=== PATIENT | female | born 1985 | race Two or more races ===

== ENCOUNTER 2019-09-21 10:13 | Emergency (ER) | payer OTHER ==
[~2019-09-21] VITALS: Ht 165.1 cm; Wt 61.7 kg
[2019-09-21] MEDS ORDERED: PRENA1 TRUE CO1 EACH PO (10:38)
== END 2019-09-21 17:27 | disposition home or self-care (01) ==
LOC: ER 10:13
DX: O20.8 Other hemorrhage in early pregnancy (principal); O26.851 Spotting complicating pregnancy, first trimester; O36.80X1 Pregnancy with inconclusive fetal viability, fetus 1; Z34.01 Encounter for supervision of normal first pregnancy, first trimester

== ENCOUNTER 2019-09-28 18:36 | Inpatient (IN) | payer OTHER ==
[~2019-09-28] VITALS: Ht 165.1 cm; Wt 61.7 kg
[~2019-09-28 18:36] MED LIST: PRENA1 TRUE CO1 EACH PO
== END 2019-10-01 12:20 | disposition home or self-care (01) | DRG 818 ==
LOC: OB/GYN 18:36
PROVIDERS: ADMIT Obstetrics & Gynecology Obstetrics
PROC: 10D27ZZ Extraction of Products of Conception, Ectopic, Via Natural or Artificial Opening (ICD-10-PCS; principal; 2019-09-28)
DX: O00.101 Right tubal pregnancy without intrauterine pregnancy (principal); O08.89 Other complications following an ectopic and molar pregnancy

== ENCOUNTER → 2020-03-07 09:02 | Outpatient (CLI) | payer OTHER | END | disposition home or self-care (01) | LOC: RX STUDY 09:02 | PROVIDERS: ATTEND Obstetrics & Gynecology Obstetrics | DX: Z00.00 Encounter for general adult medical examination without abnormal findings (principal) ==

== ENCOUNTER 2023-06-28 13:33 | Outpatient (CLI) | payer OTHER | END 2023-06-28 16:31 | disposition home or self-care (01) | LOC: PRENATAL 13:33 | PROVIDERS: ATTEND Obstetrics & Gynecology Maternal & Fetal Medicine | DX: O36.80X0 Pregnancy with inconclusive fetal viability, not applicable or unspecified (principal); O26.859 Spotting complicating pregnancy, unspecified trimester; O99.341 Other mental disorders complicating pregnancy, first trimester; O09.529 Supervision of elderly multigravida, unspecified trimester; O34.40 Maternal care for other abnormalities of cervix, unspecified trimester; O34.10 Maternal care for benign tumor of corpus uteri, unspecified trimester; Z3A.01 Less than 8 weeks gestation of pregnancy ==

== ENCOUNTER 2023-07-29 09:26 | Outpatient (CLI) | payer OTHER | END 2023-07-29 10:48 | disposition home or self-care (01) | LOC: PRENATAL 09:26 | PROVIDERS: ATTEND Obstetrics & Gynecology Maternal & Fetal Medicine | DX: O36.80X0 Pregnancy with inconclusive fetal viability, not applicable or unspecified (principal); O99.341 Other mental disorders complicating pregnancy, first trimester; O09.529 Supervision of elderly multigravida, unspecified trimester; O34.40 Maternal care for other abnormalities of cervix, unspecified trimester; O34.10 Maternal care for benign tumor of corpus uteri, unspecified trimester; Z36.9 Encounter for antenatal screening, unspecified; Z3A.12 12 weeks gestation of pregnancy ==

== ENCOUNTER → 2023-07-30 14:18 | Outpatient (CLI) | payer OTHER | END | disposition home or self-care (01) | LOC: PRENATAL 14:18 | PROVIDERS: ATTEND Obstetrics & Gynecology Maternal & Fetal Medicine | DX: O36.80X0 Pregnancy with inconclusive fetal viability, not applicable or unspecified (principal); O99.341 Other mental disorders complicating pregnancy, first trimester; O09.529 Supervision of elderly multigravida, unspecified trimester; O34.40 Maternal care for other abnormalities of cervix, unspecified trimester; O34.10 Maternal care for benign tumor of corpus uteri, unspecified trimester; O26.859 Spotting complicating pregnancy, unspecified trimester; Z3A.12 12 weeks gestation of pregnancy ==

== ENCOUNTER 2023-09-15 09:35 | Emergency (ER) | payer OTHER ==
[~2023-09-15] VITALS: Ht 167.6 cm; Wt 68.0 kg
== END 2023-09-15 10:25 | disposition home or self-care (01) ==
LOC: ER 09:36
DX: H60.90 Unspecified otitis externa, unspecified ear (principal); Z3A.19 19 weeks gestation of pregnancy; Z88.6 Allergy status to analgesic agent; Z88.9 Allergy status to unspecified drugs, medicaments and biological substances

== ENCOUNTER 2023-09-24 08:03 | Outpatient (CLI) | payer OTHER | END 2023-09-24 08:05 | disposition home or self-care (01) | LOC: PRENATAL 08:03 | PROVIDERS: ATTEND Obstetrics & Gynecology Maternal & Fetal Medicine | DX: O35.3XX0 Maternal care for (suspected) damage to fetus from viral disease in mother, not applicable or unspecified (principal); O44.00 Complete placenta previa NOS or without hemorrhage, unspecified trimester; O99.342 Other mental disorders complicating pregnancy, second trimester; O09.529 Supervision of elderly multigravida, unspecified trimester; O34.40 Maternal care for other abnormalities of cervix, unspecified trimester; O34.10 Maternal care for benign tumor of corpus uteri, unspecified trimester; Z3A.20 20 weeks gestation of pregnancy ==

== ENCOUNTER → 2023-10-17 14:34 | Outpatient (CLI) | payer OTHER | END | disposition home or self-care (01) | LOC: PRENATAL 14:34 | PROVIDERS: ATTEND Obstetrics & Gynecology Maternal & Fetal Medicine | DX: O26.849 Uterine size-date discrepancy, unspecified trimester (principal); O09.529 Supervision of elderly multigravida, unspecified trimester; O34.10 Maternal care for benign tumor of corpus uteri, unspecified trimester; Z3A.23 23 weeks gestation of pregnancy ==

== ENCOUNTER 2023-11-25 00:58 | Inpatient (IN) | payer OTHER ==
[~2023-11-25] VITALS: Ht 165.1 cm; Wt 72.6 kg
[2023-11-25] MEDS ORDERED: MAGNESIUM SULFATE IN WATER 4 GM/100 ML PIGGYBACK IV ONE (01:07)
[2023-11-25] MEDS ORDERED: BETAMETHASONE ACETATE,SOD PHOS 30 MG/5 ML ML ONE (01:11)
[2023-11-25] MEDS ORDERED: OMEGA-31000 MG PO (01:15)
[2023-11-25] MEDS ORDERED: ALPRAZOLAM OD0.25 MG PO (01:15)
[2023-11-25] MEDS ORDERED: BETAMETHASONE ACETATE,SOD PHOS 30 MG/5 ML ML IM ONE (01:30)
[2023-11-25] MEDS ORDERED: MAGNESIUM SULFATE IN WATER 500 ML IV SCH (01:30)
[2023-11-25] MEDS ORDERED: RINGERS SOLUTION,LACTATED 1,000 ML IV SCH (01:30)
[2023-11-25 02:48] LABS: URINE APPEARANCE Cloudy; URINE BILIRRUBIN Negative (NEGATIVE); URINE BLOOD Negative; URINE COLOR Yellow; URINE GLUCOSE Negative (NEGATIVE); URINE LEUKOCYTE Negative; URINE NITRATE Negative; URINE PROTEIN Negative (NEGATIVE); URINE UROBILINOGEN 0.2 E.U./dl
[2023-11-25 02:49] LABS: HEMATOCRIT 36.2 % (36.0-45.00); HEMOGLOBIN 12.6 g/dL (12.0-15.00); MEAN CELL VOLUME 96.8 fL (80.00-100.00); MEAN CORPUSCULAR HEMOGLOBIN 33.7 pg (27.00-32.0); MEAN CORPUSCULAR HGB CONC 34.8 g/dl (32.0-36.0); PLATELET COUNT 242 K/uL (150-450); RED BLOOD COUNT 3.74 M/uL (4.00-6.00); RED CELL DISTRIBUTION WIDTH 12.9 % (11.5-14.5)
[2023-11-25 02:52] LABS: URINE BACTERIA 977.5 uL (0.0-1933); URINE RBC 2.5 uL (0.0-20.8); URINE WBC 20.4 uL (0.0-23.2)
[2023-11-25] MEDS ORDERED: MAGNESIUM SULFATE IN WATER 100 ML IV ONE (03:15)
[2023-11-25 04:26] LABS: INR < 0.93; PARTIAL THROMBOPLASTIN TIME 25.3 SECONDS (22.0-34.0); PROTHROMBIN TIME 9.8 SECONDS (9.0-11.5)
[2023-11-26] MEDS ORDERED: BETAMETHASONE ACETATE,SOD PHOS 30 MG/5 ML ML IM ONE (01:30)
== END 2023-11-27 16:42 | disposition home or self-care (01) | DRG 832 ==
LOC: LDR 00:58
PROVIDERS: ADMIT Obstetrics & Gynecology Obstetrics; ATTEND Obstetrics & Gynecology Obstetrics
PROC: 4A1HXCZ Monitoring of Products of Conception, Cardiac Rate, External Approach (ICD-10-PCS; principal; 2023-11-25)
PROC: BY4FZZZ Ultrasonography of Third Trimester, Single Fetus (ICD-10-PCS; 2023-11-25)
PROC: BU4CZZZ Ultrasonography of Uterus and Ovaries (ICD-10-PCS; 2023-11-25)
DX: O60.03 Preterm labor without delivery, third trimester (principal); O26.873 Cervical shortening, third trimester; O26.843 Uterine size-date discrepancy, third trimester; Z3A.29 29 weeks gestation of pregnancy; Z20.822 Contact with and (suspected) exposure to COVID-19

== ENCOUNTER → 2023-12-31 08:26 | Outpatient (CLI) | payer OTHER ==
[~2023-12-31 08:26] MED LIST changes: +ALPRAZOLAM OD0.25 MG PO; +OMEGA-31000 MG PO
== END | disposition home or self-care (01) ==
LOC: PRENATAL 08:26
PROVIDERS: ATTEND Obstetrics & Gynecology Maternal & Fetal Medicine
DX: O26.849 Uterine size-date discrepancy, unspecified trimester (principal); O36.8199 Decreased fetal movements, unspecified trimester, other fetus; O09.529 Supervision of elderly multigravida, unspecified trimester; Z3A.34 34 weeks gestation of pregnancy